=== PATIENT | female | born 1930 | race Caucasian/White ===

== ENCOUNTER → 2017-10-11 | Outpatient (CLI) | payer OTHER ==
[~2017-10-11] VITALS: Ht 157.5 cm; Wt 58.1 kg
[~2017-10-11] MED LIST: ATORVASTATIN CA40 MG PO; CALCIUM 500 +1 EAC5 PO; CARTIA XT240 M1 PO; CENTRUM SILVER1 EAC4 PO; LISINOPRIL20 MG PO; MOBIC7.5 MG PO; OMEPRAZOLE 20 M20 MG PO; PLAVIX 75 MG TA75 MG PO; REQUIP 0.25 M0.25 MG PO; VITAMIN D2000 UNIT PO; XANAX 0.25 MG0.25 MG PO; ZOLPIDEM TARTRA10 MG PO
--- NOTE | ~2017-10-11 | HPC ---
[facility] [place] [address] PAIN MANAGEMENT CONSULTATION Name: SILVERIO BACA Room #: REG [facility] Leatha.#: [id number] Admission: 10/11/17 Attend Phys: Nando Zabala DO Discharge: Date of : [birth year] Report #: [id number] THIS REPORT FOR: //name// CC: GLORIA Zabala DATE OF SERVICE: 10/11/2017 CHIEF COMPLAINT: Low back pain, right lower extremity pain with paresthesias. HISTORY OF PRESENT ILLNESS: As you know, the patient is a very pleasant 87-year-old female who began experiencing low back pain, right lower extremity pain and paresthesias that presented 05/2016. She denies injury or trauma that may have led to symptom development. She indicates today, pain is constant, describes the pain as aching and gnawing, places current pain score 6/10, daily average at 6/10, worst pain has been is 8/10. The patient states that getting up in the morning exacerbates her symptoms, sitting with a heat pad and the use of meloxicam tends to improve pain mildly. The patient has been evaluated by primary care physician to trial multiple conservative therapies, ultimately undergoing MRI of the lumbar spine. The findings were such, the patient referred to our service to discuss treatment options for lumbar radiculopathy secondary to the displacement of a lumbar intervertebral disk. PAST MEDICAL HISTORY: 1. Hypertension. 2. Coronary artery disease. 3. Hyperlipidemia. 4. Chronic fatigue. 5. Restless leg syndrome. 6. Anxiety. 7. Chronic insomnia. 8. Osteoarthritis. PAST SURGICAL HISTORY: 1. Coronary artery stenting x 2. 2. Balloon angioplasty. 3. Endoscopy secondary to pancreatitis. SOCIAL HISTORY: The patient denies tobacco, alcohol, IV or illicit drug use. She is a mother and grandmother who is not in litigation in regards to her pain. 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 She is accompanied by a daughter who is present in room today. REVIEW OF SYSTEMS: Positive for fatigue and weakness, eye disease, wearing corrective eyewear, cataracts, hearing loss with tinnitus, heart trouble, [facility] [address] [place] [address] PAIN MANAGEMENT CONSULTATION Name: SILVERIO BACA Room #: REG [facility].#: [id number] Admission: 10/11/17 Attend Phys: Nando Zaabla DO Discharge: Date of : [birth year] Report #: [id number] asthma, wheezing, frequent urination, nocturia, varicose veins, nervousness, insomnia, low back pain, right lower extremity pain and paresthesias, bleeding, bruising tendencies secondary to anticoagulation. All other review of systems negative per 12-point review of systems other than those listed in history of present illness. Pain impact score 26/70 indicating [id number] interference of daily activities secondary to pain. ALLERGIES: ASPIRIN, AUGMENTIN, AMOXICILLIN, ERYTHROMYCIN. CURRENT MEDICATIONS: Zolpidem 10 mg p.o. at bedtime, alprazolam 0.25 mg q. 6 hours p.r.n. anxiety, Requip 0.25 mg 2 tabs at night. IMAGING: MRI lumbar spine obtained on 10/05/2017 shows L1-L2 broad-based disk bulge, no central canal neural foraminal stenosis. L2-L3 left paracentral disk protrusion, facet arthropathy, ligamentum flavum hypertrophy, mild left-sided canal and neural foraminal narrowing. L3-L4 disk bulge, small central protrusion, facet arthropathy thickening of the ligamentum flavum, mild central canal stenosis. L4-L5 disk bulge asymmetric to right, protrusion in disk osteophyte complex in conjunction with facet ligamentum flavum hypertrophy resulting in [id number] central canal narrowing, right lateral recess stenosis, right foraminal encroachment. L5-S1 lumbosacral transitional vertebral segment, no disk herniations, spinal stenosis at this level. PHYSICAL EXAMINATION: VITAL SIGNS: Blood pressure 155/87, pulse 75, respiratory rate 14 and unlabored. The patient is 97% on room air. Height 5 feet 2 inches tall, weight 128 pounds, BMI calculated 23.4. GENERAL: Well-developed, well-nourished, well-hydrated 87-year-old female who appears her stated age. She is placing current pain score at 6-8/10. HEENT: Normocephalic, atraumatic. Pupils equal, round, reactive to light. Extraocular muscles are intact. Sclerae nonicteric without injection. NEUROLOGIC: Cranial nerves 2-12 grossly intact. Speech is fluent. The patient deemed an excellent historian. LUNGS: Clear, no wheeze, rhonchi or rales. CARDIOVASCULAR: Regular. No appreciable gallop or rub. ABDOMEN: Soft, nontender, nondistended, normoactive bowel sounds. EXTREMITIES: Show no clubbing, no cyanosis, no edema. MUSCULOSKELETAL: Lower extremity strength appears equal and symmetrical 5/5, muscle bulk and tone equal and symmetrical in the lower extremities. Deep tendon reflexes are symmetrical at patella and Achilles, but diminished bilaterally. Ankle clonus negative. Babinski is negative. Seated straight leg raising negative. Supine straight leg raising positive on the right. RIMA's test negative. Modified Gaenslen's positive for axial low back pains. Stance is slightly forward flexed lumbar spine, noted scoliotic curvature. [facility] [address] [place] [address] PAIN MANAGEMENT CONSULTATION Name: KEVENSILVERIO Sameera Room #: REG [facility] Leatha.#: [id number] Admission: 10/11/17 Attend Phys: Nando Zabala DO Discharge: Date of : [birth year] Report #: [id number] ASSESSMENT: 1. Symptomatic lumbar radiculopathy. 2. Spinal stenosis of lumbar spine. 3. Displacement of lumbar intervertebral disk with radiculopathy. 4. Lumbosacral spondylosis with radiculopathy. 5. Lumbar degeneration. 6. Chronic intractable pain. PLAN: 1. Based on today's physical exam, history the patient has provided, the description the patient uses in regards to pain, the like source of the patient's symptoms is a lumbar radiculopathy. I discussed with the patient the findings on the MRI. We spent over 32 minutes of time reviewing the MRI and correlating to imaging on the computer as well as models in the room today. After this long discussion of the physical findings on the MRI and how they correlated to her symptoms, we discussed treatment options, which would include the following: The patient was advised treatment options would include physical therapy, stretching exercises, core strengthening. We discussed medication management with the addition of a neuropathic pain medication and low dose opioid for pain control. The patient cannot have nonsteroidal anti-inflammatories due to use of Plavix and the potential increased risk of bleeding. We discussed epidural injections for which the patient was referred to our clinic, spinal cord stimulator therapy and surgical options. After reviewing the risks and benefits of all proposed treatment options, the patient chose to undergo epidural injection under fluoroscopic guidance. The patient was advised she will need to discontinue her Plavix 7 days prior to epidural injection. The patient will need to gain clearance from her ethernet network architect to come off the Plavix for 7 days in preparation for this neuraxial injection. If the patient is able to clear from a cardiovascular standpoint to come off the Plavix, we will have the patient return in one week assuming we can gain authorization for this procedure. 2. The patient was advised that third alliance party payer restrictions do require the patient be authorized to undergo the procedure. We will begin the authorization process immediately. I do request the patient come off the Plavix in preparation for the injection in 1 week. This gives the third alliance party payer more than enough time to review the case and approve for the epidural injection requested. 3. We discussed the possibility of making additions or changes in medication. At this time, the patient wishes not to be provided new medication therapy. She wishes to trial epidural injection. [place] [address] PAIN MANAGEMENT CONSULTATION Name: SILVERIO BACA Room #: REG [facility] Guevara#: [id number] Admission: 10/11/17 Attend Phys: Nando Zabala DO Discharge: Date of : [birth year] Report #: [id number] I wish to thank Dr. Gtz for the referral of this patient to our clinic. We will keep you apprised of her response to treatment as we address her lumbar radicular pain secondary to the changes noted at L4-L5. Again, we wish to thank you for the opportunity to see this patient in consultation. <ELECTRONICALLY SIGNED> By: Nando Zabala DO 10/19/17 0902 [id number] Nando Zabala DO /nt
[2017-10-11 12:34] VITALS: BP 155/87
== END ==
LOC: PAIN 06:54
DX: M48.061 Spinal stenosis, lumbar region without neurogenic claudication (principal); M51.16 Intervertebral disc disorders with radiculopathy, lumbar region; M47.27 Other spondylosis with radiculopathy, lumbosacral region; I10 Essential (primary) hypertension; I25.10 Atherosclerotic heart disease of native coronary artery without angina pectoris; E78.5 Hyperlipidemia, unspecified; F41.9 Anxiety disorder, unspecified; G89.29 Other chronic pain

== ENCOUNTER → 2017-10-19 | Outpatient (CLI) | payer OTHER ==
[~2017-10-19] VITALS: Ht 157.5 cm; Wt 58.1 kg
--- NOTE | ~2017-10-19 | P ---
[facility] [place] [address] [address] [place] [address] PROCEDURE REPORT Name: SILVERIO BACA Sameera [id number] Admission: 10/19/17 Attend Phys: Nando Zabala DO Discharge: Date of : [birth year] Report #: [id number] THIS REPORT FOR: //name// CC: Efrain Zabala DATE OF SERVICE: 10/19/2017 PROCEDURE NOTE DESCRIPTION OF PROCEDURE: L5-S1 interlaminar epidural steroid injection under fluoroscopic guidance. This is the first procedure of the first series that the patient is undergoing. After obtaining written consent, the patient was taken back to the fluoroscopy suite, placed in a prone position with pillow under the abdomen to decrease lumbar lordosis. The skin overlying the lumbosacral area was then prepped and draped in aseptic fashion. The L5-S1 vertebral interspace was then identified by AP fluoroscopy. The skin and subcutaneous tissue overlying the target site of injection was anesthetized with 3 mL 1% lidocaine. A 20-guage 3-1/2 inch Tuohy needle was then advanced under fluoroscopic guidance towards the epidural space using a paramedian approach. The epidural space was identified using loss of resistance to air technique. After negative aspiration for heme or cerebrospinal fluid, a total of 1 mL of Omnipaque was injected. A lumbar epidurogram was confirmed using both AP and lateral fluoroscopy. After negative aspiration for heme or cerebrospinal fluid, 5 mL of a solution containing 2 mL 40 mg/mL, 80 mg total triamcinolone, 3 mL lidocaine 1% was injected in increments. Contrast spread was noted posterior epidural space. The needle was then retracted approximately half way and needle tract flushed with 1 mL of 1% Lidocaine. Needle was then removed. There were no apparent sensory or motor deficits in the lower extremity following the procedure. A sterile bandage was placed over the injection site. The heart rate, pulse, oximetry and blood pressure were continuously monitored after the procedure. There were no apparent complications. The patient tolerated the procedure well and was carefully escorted to the recovery room in stable condition. There were no apparent complications. After meeting discharge criteria, the patient was then discharged home. <ELECTRONICALLY SIGNED> By: Nando Zabala DO 10/26/17 1130 [id number] [id number] Nando Zabala DO /nt
--- NOTE | ~2017-10-19 | HPC ---
[address] [address] PAIN MANAGEMENT CONSULTATION Name: SILVERIO BACA Room #: REG [facility] Guevara#: [id number] Admission: 10/19/17 Attend Phys: Nando Zabala DO Discharge: Date of : [birth year] Report #: [id number] THIS REPORT FOR: //name// CC: Efrain Zabala DATE OF SERVICE: 10/19/2017 REFERRING PHYSICIAN: Efrain Gtz M.D. CHIEF COMPLAINT: Low back pain, right lower extremity pain and paresthesias. HISTORY OF PRESENT ILLNESS: As you know, the patient is a pleasant 87-year-old female who returns today in followup visit having received precertification to undergo the first in a series of epidural injections under fluoroscopic guidance. The patient was seen in our clinic per the request of Dr. Gtz on 10/11/2016 where she was diagnosed with lumbar radiculopathy secondary to spinal stenosis. Her spinal stenosis is multifactorial due to displaced lumbar intervertebral disks, facet arthropathy combining to generate spinal stenosis. We have received precertification for the patient to undergo the procedure today. She is placing her pain score at 3/10, states pain is constant, aching and gnawing in sensation, exacerbated with getting up in the morning, walking long distances, improves with sitting, medications and heat compresses. She returns today in followup visit to undergo the first in a series of epidural injections. ALLERGIES: ASPIRIN, ERYTHROMYCIN, AMPICILLIN. CURRENT MEDICATIONS: Multivitamin, calcium carbonate, diltiazem, omeprazole, Plavix (held for 7 days), alprazolam, zolpidem, lisinopril, ropinirole, Meloxicam, atorvastatin. SOCIAL HISTORY: The patient denies tobacco, alcohol, IV or illicit drug use. She is not in litigation in regards to her pain, unaccompanied today. IMAGING: No new imaging available. PQRS: The patient does have history of left upper extremity and right upper extremity osteoarthritis. No history of rheumatoid arthritis. Her pain intensity today is 3/10. She has no known fall risk. She does not use any devices for ambulation. She has not fallen in the last 3 months. She does have a history of hypertension, which is treated medically. She is not on chronic opioids. She has a low risk for opioid abuse potential and a functional assessment is 21/70[place] [address] PAIN MANAGEMENT CONSULTATION Name: SILVERIO BACA Room #: REG [facility] Amanda#: [id number] Admission: 10/19/17 Attend Phys: Nando Zabala DO Discharge: Date of : [birth year] Report #: [id number] PHYSICAL EXAMINATION: VITAL SIGNS: Blood pressure 157/67, pulse 75, respiratory rate 16, unlabored, patient is 97% on room air. Height 5 feet 2 inches tall, weight 128 pounds, BMI calculated 23.4. GENERAL: Well-developed, well-nourished, well-hydrated, thin, 87-year-old female appearing her stated age, placing current pain score 3/10. HEENT: Normocephalic, atraumatic. Pupils equal, round, reactive to light. EXTREMITIES: Show no clubbing, no cyanosis, no edema. MUSCULOSKELETAL: Lower extremity strength equal and symmetrical 5/5. Deep tendon reflexes are symmetrical. Seated straight leg raising negative. Supine straight leg raising positive, right. ASSESSMENT: 1. Symptomatic lumbar radiculopathy. 2. Spinal stenosis of lumbar spine. 3. Displacement of lumbar intervertebral disk with radiculopathy. 4. Lumbosacral spondylosis with radiculopathy. 5. Lumbar degeneration. 6. Chronic intractable pain. PLAN: 1. The patient returns today in followup visit to undergo first in a series of epidural injections. The patient was advised risks and benefits of this procedure. These risks include, but are not necessarily limited to bleeding, bruising, infection, worsening pain, no relief of pain, also risk of temporary or permanent muscle weakness, temporary or permanent nerve damage, possible paralysis and . The patient states understood and wished to proceed. 2. No medication changes were made at today's visit. The patient to continue current medical therapy as previously prescribed. 3. We will see the patient back in followup visit in 2 weeks for a discussion of next in the series of epidural injections. I also discussed the efficacy of today's procedure. <ELECTRONICALLY SIGNED> By: Nando Zabala DO 10/26/17 1130 [id number] [id number] Nando Zabala DO /nt
[2017-10-19 10:30] VITALS: BP 157/67
== END | disposition home or self-care (01) ==
LOC: PAIN 06:52
DX: M51.16 Intervertebral disc disorders with radiculopathy, lumbar region (principal); M48.061 Spinal stenosis, lumbar region without neurogenic claudication; M47.27 Other spondylosis with radiculopathy, lumbosacral region; G89.29 Other chronic pain; Z79.82 Long term (current) use of aspirin; Z88.0 Allergy status to penicillin; Z79.899 Other long term (current) drug therapy

== ENCOUNTER → 2017-11-02 | Outpatient (CLI) | payer OTHER ==
[~2017-11-02] VITALS: Ht 157.5 cm; Wt 57.7 kg
--- NOTE | ~2017-11-02 | HPC ---
[facility] [place] [address] PAIN MANAGEMENT CONSULTATION Name: SILVERIO BACA Room #: REG [place] Guevara#: [id number] Admission: 11/02/17 Attend Phys: Nando Zabala DO Discharge: Date of : [birth year] Report #: [id number] THIS REPORT FOR: //name// CC: Efrain Zabala DATE OF SERVICE: 11/02/2017 REFERRING PHYSICIAN: Efrain Gtz MD CHIEF COMPLAINT: Low back pain, right lower extremity pain and paresthesias. HISTORY OF PRESENT ILLNESS: As you know, the patient is a very pleasant 87-year-old female referred to our service by her primary care physician, Dr. Efrain Gtz for evaluation for suspected lumbar radiculopathy. The patient was seen in consultation on 10/11/2017, diagnosed with lumbar radiculopathy secondary to progressively worsening spinal stenosis. The patient's spinal stenosis is multifactorial due to displacement of lumbar intervertebral disk, facet arthropathy, and overall lumbar degeneration. The patient at that visit was advised on treatment options, she chose to undergo an epidural injection under fluoroscopic guidance. The patient did very well with this epidural injection, returning today in followup visit reporting pain score 0/10. She had pain since May 2016. She returns to discuss treatment options if her pain does return or intensify. ALLERGIES: ASPIRIN, ERYTHROMYCIN, AUGMENTIN, and AMOXICILLIN. CURRENT MEDICATIONS: Multivitamin 1 tab per day, calcium carbonate 1 tab per day, cholecalciferol 2000 units per day, diltiazem 240 mg once a day, omeprazole 20 mg per day, Plavix 75 mg per day, alprazolam 0.25 mg p.r.n., zolpidem 10 mg p.o. at bedtime, lisinopril 20 mg per day, ropinirole 0.25 mg once a day, Meloxicam 7.5 mg once a day, and atorvastatin 40 mg per day. SOCIAL HISTORY: The patient denies tobacco, alcohol, IV or illicit drug use. She is not in litigation in regards to her pain. She is unaccompanied today. IMAGING: No new imaging available. PQRS: The patient does have known osteoarthritis. No rheumatoid arthritis. Her pain intensity today is 0/10. Fall risk is no. She has not had fallen in the last 3 months. She is on blood thinners in the form of Plavix. She does have treatment for hypertension. She has not been on opioid therapy for greater than 6 weeks. She is not under opioid contract. Risk assessment tool for opioid abuse low. Functional assessment 0/70. [address] [address] PAIN MANAGEMENT CONSULTATION Name: SILVERIO BACA Room #: REG CL Ismael#: [id number] Admission: 11/02/17 Attend Phys: Nando Zabala DO Discharge: Date of : [birth year] Report #: [id number] PHYSICAL EXAMINATION: VITAL SIGNS: Blood pressure 136/59, pulse 76, respiratory rate 16 and unlabored, the patient is 100% on room air, height 5 feet 2 inches tall, weight 127.2 pounds, and BMI calculated 23.3. GENERAL: Well-developed, well-nourished, well-hydrated 87-year-old female, she appears her stated age, she is in no acute distress, pain rated at 0/10. HEENT: Normocephalic, atraumatic. Pupils are equal, round, and reactive to light. Extraocular muscles are intact. Sclerae are nonicteric without injection. NEUROLOGIC: Cranial nerves 2-12 are grossly intact. Speech is fluent. EXTREMITIES: Show no clubbing, no cyanosis, and no edema. MUSCULOSKELETAL: Lower extremity strength appears equal and symmetrical 5/5, intact to light touch from L1 through S2 dermatomes. Seated straight leg raising negative. Supine straight leg raising remains mildly positive on the right. Rosalia's test negative. Modified Gaenslen's positive for axial low back pain. ASSESSMENT: 1. Lumbar radiculopathy. 2. Spinal stenosis of lumbar spine. 3. Displacement of lumbar intervertebral disk with radiculopathy. 4. Lumbosacral spondylosis with radiculopathy. 5. Lumbar degeneration. 6. Chronic intractable pain. PLAN: 1. The patient has returned today in followup visit having near 100% improvement in overall pain noted with the epidural injection. The patient is very pleased with response to this epidural injection and has had no pain since the injection itself. She returns today in followup visit to discuss treatment options if her pain does intensify or return. I have advised the patient at this time treatment options remain similar to our initial evaluation, treatment options would include physical therapy, stretching exercises, core strengthening for which the patient is participating on a daily basis at home with home exercise program. We discussed medication management, but at this time the patient is reporting pain score 0/10, she does not need any changes in therapy. The patient and I also discussed the potential of repeating epidural injections given the high efficacy with this initial injection and we also discussed surgery options. After reviewing risks and benefits of all proposed treatment options, the patient chose to continue with conservative therapy and stretching exercises at home. If her pain does intensify or return, she will be returning to undergo epidural injection under fluoroscopic guidance. 2. We will make ourselves available to the patient if necessary to return for an epidural injection, I am pleased to see she has done very well with the initial injection and we will be available to see her back when necessary. 3. We wish to thank you once again for the opportunity to see the patient in [place] [address] [place] [address] PAIN MANAGEMENT CONSULTATION Name: SILVERIO BACA Room #: REG [facility] Guevara#: [id number] Admission: 11/02/17 Attend Phys: Nando Zabala DO Discharge: Date of : [birth year] Report #: [id number] consultation. We will keep you apprised if she does return for next in a series of epidural injections. <ELECTRONICALLY SIGNED> By: Nando Zabala DO 11/09/17 0715 0737 [id number] Nando Zabala DO /nt
[2017-11-02 10:59] VITALS: BP 136/59
== END ==
LOC: PAIN 06:44
DX: M54.16 Radiculopathy, lumbar region (principal); M47.897 Other spondylosis, lumbosacral region; G89.29 Other chronic pain; M48.061 Spinal stenosis, lumbar region without neurogenic claudication; Z88.6 Allergy status to analgesic agent; Z88.1 Allergy status to other antibiotic agents